=== PATIENT | female | born 1945 | race Caucasian/White ===

== ENCOUNTER → 2018-03-08 14:04 | Outpatient (CLI) | payer MEDICARE, BC, MEDICAID | END | disposition home or self-care (01) | LOC: D.CT 14:04 | DX: J84.112 Idiopathic pulmonary fibrosis (principal) ==

== ENCOUNTER → 2018-04-04 11:25 | Outpatient (CLI) | payer MEDICARE, BC, MEDICAID | END | disposition home or self-care (01) | LOC: D.RAD 11:25 | DX: R10.2 Pelvic and perineal pain (principal); S79.919A Unspecified injury of unspecified hip, initial encounter; X58.XXXA Exposure to other specified factors, initial encounter ==

== ENCOUNTER → 2018-04-07 11:09 | Outpatient (CLI) | payer MEDICARE, BC, MEDICAID | END | disposition home or self-care (01) | LOC: D.CT 10:30 | DX: R10.9 Unspecified abdominal pain (principal) ==

== ENCOUNTER 2018-06-03 17:53 | Emergency (ER) | payer MEDICARE, BC, MEDICAID ==
[~2018-06-03] VITALS: Ht 177.8 cm; Wt 154.5 kg
[2018-06-03 17:55] VITALS: Ht 177.8 cm; Wt 154.5 kg
[2018-06-03] MEDS ORDERED: NOVOLOG100 UNIT/1 (18:01)
[2018-06-03] MEDS ORDERED: ZOFRAN8 MG (18:01)
[2018-06-03] MEDS ORDERED: OFEV (18:01)
[2018-06-03] MEDS ORDERED: LYRICA100 MG (18:02)
[2018-06-03] MEDS ORDERED: KLONOPIN0.5 MG (18:02)
[2018-06-03] MEDS ORDERED: SINGULAIR10 MG (18:02)
[2018-06-03] MEDS ORDERED: METOPROLOL TART50 MG PO (18:02)
[2018-06-03] MEDS ORDERED: ALDACTONE25 MG (18:02)
[2018-06-03] MEDS ORDERED: CELEXA20 MG (18:02)
[2018-06-03] MEDS ORDERED: POTASSIUM (18:03)
[2018-06-03] MEDS ORDERED: PROTONIX40 MG (18:03)
[2018-06-03] MEDS ORDERED: LASIX40 MG (18:03)
[2018-06-03] MEDS ORDERED: ZYRTEC10 MG (18:03)
[2018-06-03] MEDS ORDERED: MOBIC7.5 MG PO (18:03)
[2018-06-03] MEDS ORDERED: [UNRECOGNIZED DRUG - OTHER] (18:04)
[2018-06-03] MEDS ORDERED: MUCINEX600 MG ×2 (18:04→18:05)
[2018-06-03] MEDS ORDERED: ASPIRIN325 MG (18:05)
[2018-06-03] MEDS ORDERED: COLACE100 MG (18:06)
[2018-06-03] MEDS ORDERED: MELATONIN5 MG (18:06)
[2018-06-03] MEDS ORDERED: NORCO 10-325 TA1 TAB PO (19:56)
[2018-06-03 20:53] VITALS: BP 117/60
== END 2018-06-03 20:54 | disposition home or self-care (01) ==
LOC: D.ER 17:53
DX: S80.01XA Contusion of right knee, initial encounter (principal); W18.30XA Fall on same level, unspecified, initial encounter; Y93.89 Activity, other specified; Y92.019 Unspecified place in single-family (private) house as the place of occurrence of the external cause; E11.9 Type 2 diabetes mellitus without complications; Z79.4 Long term (current) use of insulin; Z96.41 Presence of insulin pump (external) (internal); I10 Essential (primary) hypertension

== ENCOUNTER → 2018-06-13 09:39 | Outpatient (CLI) | payer MEDICARE, BC, MEDICAID ==
[2018-06-03 17:55] VITALS: BMI 48.8
[~2018-06-13 09:39] MED LIST: ALDACTONE25 MG; ASPIRIN325 MG; CELEXA20 MG; COLACE100 MG; KLONOPIN0.5 MG; LASIX40 MG; LYRICA100 MG; MELATONIN5 MG; METOPROLOL TART50 MG PO; MOBIC7.5 MG PO; MUCINEX600 MG; NORCO 10-325 TA1 TAB PO; NOVOLOG100 UNIT/1; OFEV; POTASSIUM; PROTONIX40 MG; SINGULAIR10 MG; ZOFRAN8 MG; ZYRTEC10 MG; [UNRECOGNIZED DRUG - OTHER]
== END | disposition home or self-care (01) ==
LOC: D.US 09:39
DX: R60.0 Localized edema (principal)

== ENCOUNTER 2020-06-28 16:04 | Inpatient (IN) | payer MEDICARE, BC ==
[~2020-06-28] VITALS: Ht 177.8 cm; Wt 163.6 kg
[2020-06-28 17:14] LABS: BASOPHILS 0.3 % (0-2); EOSINOPHILS 6.8 % (0-7); HEMATOCRIT 41.2 % (36.0-48.0); HEMOGLOBIN 12.6 g/dL (12-16); IMMATURE GRANULOCYTES 0.3 % (0-5); LYMPHOCYTE ABS# 2.09 10x3/uL (1.18-3.74); LYMPHOCYTES 18.1 % (15-50); MCH 27.1 pg (26.0-34.0); MCHC 30.6 g/dL (31.0-37.0); MCV 88.6 fL (80.0-100.0); MEAN PLATELET VOLUME 9.8 fL (7.4-10.4); MONOCYTES 6.6 % (2-11); NEUTROPHIL ABS# 7.87 10x3/uL (1.56-6.13); NEUTROPHILS 67.9 % (40-80); PLATELET COUNT 234 10x3/uL (130-400); RBC 4.65 10x6/uL (4.00-5.40); RDW 16.5 % (11.5-14.5); WBC 11.6 10x3/uL (4.8-10.8)
[2020-06-28 17:33] LABS: APTT 30.2 SECONDS (22.8-39.4); INR 1.06 (0.85-1.17); PROTIME 12.8 SECONDS (11.6-15.0)
[2020-06-28 17:36] LABS: CALC OSMOLALITY 276 mosm/kg (275-300); CALCIUM 8.8 mg/dL (8.5-10.1); CARBON DIOXIDE 30.4 mmol/L (21.0-32.0); CHLORIDE - SERUM 100 mmol/L (98-107); CREATININE - SERUM 1.1 mg/dL (0.6-1.3); GLUCOSE 180 mg/dL (74-106); POTASSIUM - SERUM 3.9 mmol/L (3.5-5.1); SODIUM 135 mmol/L (136-145); UREA NITROGEN 17 mg/dL (7-18); eGFR NON AFRICAN AMERICAN 51 mL/min (90-120)
[2020-06-28 17:52] LABS: ALBUMIN 3.1 g/dL (3.4-5.0); ALKALINE PHOSPHATASE 92 U/L (30-120); ALT (SGPT) 40 U/L (10-68); CKMB 1.4 U/L (0.0-3.6); CREATINE KINASE 126 UL (21-215); PRO BNP 60 pg/mL (0-125); PROTEIN - SERUM 6.7 g/dL (6.4-8.2); TROPONIN-I < 0.017 ng/mL (0.000-0.060)
[2020-06-28 18:50] LABS: INFLUENZA TYPE A NEGATIVE (NEGATIVE); INFLUENZA TYPE B NEGATIVE (NEGATIVE); SARS-CoV-2 ANTIGEN NEGATIVE- SARS-COV-2 (NEGATIVE)
[2020-06-28 21:00] VITALS: BP 130/65
[2020-06-29] VITALS: BP 132/54
--- NOTE | 2020-06-29 02:08 | NUR ---
ASSISTED PT TO BSC, VOIDED LARGE AMOUNT YELLOW URINE. ASSISTED BACK TO BED AND POSITIONED FOR COMFORT. DENIES ANY OTHER NEEDS AT THIS TIME. BED IN LOWEST, SRX3, CALL LIGHT WITHIN REACH. CPOC.
[2020-06-29 04:00] VITALS: BP 134/62
[2020-06-29 06:22] LABS: BASOPHILS 0.4 % (0-2); EOSINOPHILS 7.6 % (0-7); HEMATOCRIT 44.7 % (36.0-48.0); HEMOGLOBIN 13.7 g/dL (12-16); IMMATURE GRANULOCYTES 0.4 % (0-5); LYMPHOCYTE ABS# 3.35 10x3/uL (1.18-3.74); LYMPHOCYTES 24.4 % (15-50); MCH 27.1 pg (26.0-34.0); MCHC 30.6 g/dL (31.0-37.0); MCV 88.3 fL (80.0-100.0); MEAN PLATELET VOLUME 10.2 fL (7.4-10.4); NEUTROPHIL ABS# 8.12 10x3/uL (1.56-6.13); NEUTROPHILS 59.2 % (40-80); PLATELET COUNT 267 10x3/uL (130-400); RBC 5.06 10x6/uL (4.00-5.40); RDW 16.7 % (11.5-14.5); WBC 13.7 10x3/uL (4.8-10.8)
[2020-06-29 06:27] LABS: BILIRUBIN NEGATIVE (NEGATIVE); KETONE NEGATIVE (NEGATIVE); NITRITE NEGATIVE (NEGATIVE); UROBILINOGEN NORMAL mg/dL (< 2)
[2020-06-29 06:28] LABS: BACTERIA FEW HPF (NONE SEEN); SQUAMOUS EPITHELIAL 0-5 HPF (0-4)
[2020-06-29 06:33] LABS: ALBUMIN 3.2 g/dL (3.4-5.0); ANION GAP 11.8 mmol/L (8-16); BILIRUBIN - TOTAL 0.36 mg/dL (0.2-1.3); CALCIUM 9.2 mg/dL (8.5-10.1); CARBON DIOXIDE 29.9 mmol/L (21.0-32.0); CREATININE - SERUM 1.1 mg/dL (0.6-1.3); MAGNESIUM - SERUM 1.7 mg/dL (1.8-2.4); POTASSIUM - SERUM 3.7 mmol/L (3.5-5.1); PROTEIN - SERUM 7.5 g/dL (6.4-8.2)
--- NOTE | 2020-06-29 09:40 | NUR ---
PT ASSISTED TO BSC.
--- NOTE | 2020-06-29 09:55 | NUR ---
IV DISLODGED BY PT. CATHLON INTACT.
--- NOTE | 2020-06-29 10:01 | NUR ---
PT ASSISTED BACK TO BED. ICE WATER PROVIDED AT PT REQUEST.
[2020-06-29 10:21] VITALS: BP 139/60
--- NOTE | 2020-06-29 10:54 | NUR ---
[facility] CONTACTED FOR TRANSPORT.
[2020-06-29 12:13] VITALS: Ht 177.8 cm; Wt 163.6 kg
== END 2020-06-29 12:00 | disposition short-term general hospital (02) | DRG 193 ==
LOC: D.ER 16:04 → D.EDHOLD 18:57 → D.M2 06-29 05:40 → D.EDHOLD 06-29 12:00
PROVIDERS: Family Medicine; ADMIT Family Medicine; ATTEND Family Medicine
DX: J18.9 Pneumonia, unspecified organism (principal); J96.21 Acute and chronic respiratory failure with hypoxia; E87.1 Hypo-osmolality and hyponatremia; J84.10 Pulmonary fibrosis, unspecified; E11.65 Type 2 diabetes mellitus with hyperglycemia; I10 Essential (primary) hypertension; M19.90 Unspecified osteoarthritis, unspecified site